=== PATIENT | male | born 1945 | race Caucasian/White ===

== ENCOUNTER 2017-10-01 17:12 | Emergency (ER) | payer MEDICARE, OTHER ==
[~2017-10-01 17:12] MED LIST: ASPI-555 PO; ATOR80TA PO; DIGO125T87 PO; LACO150T2 PO; LEVE1000 PO; LISI2.5T2 PO; METO50TA9 PO; MULT-603 PO
[2017-10-01 17:46] LABS: BASOPHILS % (AUTO) 0.6 % (0.0-5.0); EOSINOPHILS % (AUTO) 1.4 % (0.0-8.0); HEMATOCRIT 45.7 % (42-54); LYMPHOCYTES % (AUTO) 20.2 % (21.0-51.0); MEAN CORPUSCULAR HEMOGLOBIN 29.2 pg (27.0-33.0); MEAN CORPUSCULAR HGB CONC 34.1 g/dL (32.0-36.0); MEAN CORPUSCULAR VOLUME 85.6 fL (79-99); MONOCYTES % (AUTO) 9.8 % (3.0-13.0); NUCLEATED RED BLOOD CELLS 0.1 % (0.0-0.19); PLATELET COUNT (AUTO) 226 K/uL (130-400); RED BLOOD CELL COUNT(AUTO) 5.34 MIL/uL (4.50-6.20); RED CELL DISTRIBUTION WIDTH 15.2 % (11.0-15.5); WHITE BLOOD COUNT (AUTO) 11.1 K/uL (4.8-10.8)
[2017-10-01 18:16] LABS: INR 1.04 (0.85-1.15); PARTIAL THROMBOPLASTIN TIME 29.5 SEC (26.3-35.5); PROTHROMBIN TIME 10.9 SEC (9.6-11.6)
[2017-10-01 18:19] LABS: CREATINE KINASE MB < 0.5 ng/mL (0.5-3.6); CREATINE KINASE, TOTAL 102 U/L (21-232); MYOGLOBIN 44 ng/mL (10-92); TROPONIN I < 0.04 ng/mL (0.00-0.06)
[2017-10-01 18:37] LABS: CREATININE 0.9 mg/dL (0.5-1.5); POTASSIUM 4.3 mmol/L (3.5-5.1)
[2017-10-01 18:42] LABS: ALBUMIN 3.5 g/dL (3.5-5.0); BILIRUBIN,TOTAL 1.8 mg/dL (0.2-1.0); TOTAL PROTEIN, SERUM 7.7 g/dL (6.0-8.3)
[2017-10-01 20:05] LABS: APPEARANCE,URINE Clear (CLEAR); BILIRUBIN,URINE Negative (NEGATIVE); COLOR,URINE Yellow (YELLOW); GLUCOSE, URINE (UA) Negative (NEGATIVE); KETONES,URINE Negative (NEGATIVE); LEUKOCYTE ESTERASE ,URINE Negative (NEGATIVE); NITRATE,URINE Negative (NEGATIVE); OCCULT BLOOD,URINE Negative (NEGATIVE); PROTEIN,URINE Negative (NEGATIVE)
[2017-10-01 20:13] LABS: AMPHET/METH SCREEN,URINE NEGATIVE (NEGATIVE); BARBITURATE SCREEN, URINE NEGATIVE (NEGATIVE); BENZODIAZEPINES SCREEN,URINE NEGATIVE (NEGATIVE); CANNABINOID SCREEN,URINE NEGATIVE (NEGATIVE); COCAINE SCREEN,URINE NEGATIVE (NEGATIVE); OPIATE SCREEN,URINE NEGATIVE (NEGATIVE); PHENCYCLIDINE SCREEN,URINE NEGATIVE (NEGATIVE)
[2017-10-01] MEDS ORDERED: OSELTAMIVIR PHOSPHATE 75 MG CAP ONE (21:07)
== END 2017-10-01 22:06 | disposition home or self-care (01) ==
LOC: EDH 17:12
DX: R41.82 Altered mental status, unspecified (principal); J10.1 Influenza due to other identified influenza virus with other respiratory manifestations; I10 Essential (primary) hypertension; E78.5 Hyperlipidemia, unspecified; I25.10 Atherosclerotic heart disease of native coronary artery without angina pectoris; Z87.442 Personal history of urinary calculi; Z98.890 Other specified postprocedural states; Z87.891 Personal history of nicotine dependence
CPT/HCPCS: 36415; 70450; 71045; 80053; 80162; 80305; 81003; 82550; 82553; 83605; 83874; 84484; 85025; 85610; 85730; 87804; 93005

== ENCOUNTER → 2019-02-15 | Outpatient (CLI) | payer OTHER ==
--- NOTE | 2019-02-15 10:30 | NUR ---
MBSS COMPLETED. ASPIRATION WITH PUDDING AT NEUTRAL HEAD POSITION. RECOMMEND CONTINUED PEG FEEDINGS WITH PLEASURE FEEDS OF REGULAR, PUDDING-THICK LIQUIDS; PILLS VIA PEG. PATIENT INFORMATION: Pt IS A 73 YEAR OLD MALE REFERRED FOR AN MBSS SECONDARY TO S/P THERAPEUTIC INTERVENTION. Pt AAOX2 WITH DYSARTHRIC SPEECH. ACCOMPANIED Pt TO EVALUATION AND SERVED PRIMARY INFORMANT FOR MEDICAL AND SOCIAL HISTORY. Pt CURRENTLY LIVING IN AN ASSISTED LIVING WHERE HE WAS RECEIVING THERAPY SERVICES. Pt HAS A PAST MEDICAL HISTORY SIGNIFICANT FOR CAD, LEFT HEMIPLEGIA, CVA, HYDROCEPHALUS, S/P SHUNT PLACEMENT, CHRONIC AFIB, [place], EPILEPSY, HYPERLIPIDEMIA, INCONTINENCE, OBESITY, 2008 RUPTURED ANEURYSM, PACEMAKER, PITUITARY BRAIN TUMOR REMOVAL 2009, RENAL STONES, ASPIRATION PNEUMONIA 11/16/2018, BRAIN ABSCESS 2017, ANKLE SURGERY 2017. LAST MBSS ON 12/03/2018 RECOMMENDING NPO, PEG. MBSS INTERPRETATION: SEVERE PHARYNGEAL DYSPHAGIA CAUSED BY DECREASED TONGUE BASE RETRACTION, DELAYED PHARYNGEAL RESPONSE TIME, DECREASED LARYNGEAL ELEVATION/EXCURSION E/B POOLING IN THE VALLECULAE (CLEARED WITH CUED RE-SWALLOW), MILD POSTERIOR PHARYNGEAL WALL RESIDUE. RESULTING IN SILENT ASPIRATION WITH PUDDING AT NEUTRAL HEAD POSITION, SHALLOW TRANSIENT PENETRATION WITH PUREED AT NEUTRAL HEAD POSITION, NO ASPIRATION OR PENETRATION WITH CHIN TUCK OR LEFT HEAD TURN WITH PUDDING AND HONEY-THICK LIQUIDS. TRIALS: 1. TSP PUREED AT NEUTRAL HEAD POSITION: SHALLOW TRANSIENT PENETRATION 2. TSP PUREED AT NEUTRAL HEAD POSITION: SHALLOW TRANSIENT PENETRATION 3. TSP PUDDING AT NEUTRAL HEAD POSITION: SILENT ASPIRATION 4. COOKIE: GOOD (CUED RE-SWALLOW TO CLEAR RESIDUE IN VALLECULAE) 5. TSP PUREED WITH CHIN TUCK: GOOD 6. TSP PUDDING: LEFT HEAD TURN: GOOD 7. TSP HONEY-THICK LIQUIDS WITH CHIN TUCK: GOOD RECOMMENDATIONS: 1. PEG FEEDINGS 2. PLEASURE FEEDS: REGULAR, PUDDING-THICK LIQUIDS VIA TSP *PLEASURE FEEDS TO BE COMPLETED BY TRAINED CAREGIVER, FAMILY MEMBER OR PROFESSIONAL COMPENSATORY STRATEGIES MUST USED STRICTLY. 3. COMPENSATORY STRATEGIES: *SEATED AT 90 *CHIN TUCK OR LEFT HEAD TURN WITH ALL LIQUIDS (PUDDING-THICK) *RE-SWALLOW 4. SKILLED SPEECH THERAPY RECOMMENDED 2XWEEK TOLERATED BY Pt TO COMPLETE PLEASURE FEEDS AND TRIALS OF ADVANCED TEXTURES. SEISMOLOGY TEACHER EDUCATED Pt AND ON RISKS AND CONSEQUENCES OF ASPIRATION. SAFE SWALLOW PRECAUTIONS WERE EXTENSIVELY REVIEWED BY SEISMOLOGY TEACHER. DEMONSTRATED UNDERSTANDING VIA TEACH BACK METHOD. ALL RESULTS AND RECOMMENDATIONS WERE PROVIDED VIA WRITTEN MODALITY. ALL QUESTIONS ANSWERED AT THIS TIME. G-CODES SWALLOWING: [id number] Addendum: 02/15/19 at 1450 by PUNEET FELIX, [facility] Amended: Links added.
== END | disposition home or self-care (01) ==
LOC: RAH 09:56
PROVIDERS: ATTEND Nurse Practitioner
DX: R13.10 Dysphagia, unspecified (principal); I25.10 Atherosclerotic heart disease of native coronary artery without angina pectoris; I50.9 Heart failure, unspecified
CPT/HCPCS: G8996; G8997; G8998; 74230; 92611